=== PATIENT | female | born 1975 | race Two or more races ===

== ENCOUNTER 2023-09-11 19:45 | Emergency (ER) | payer MEDICAID, OTHER ==
[~2023-09-11] VITALS: Ht 165.1 cm; Wt 89.1 kg
[2023-09-11 20:18] VITALS: BP 168/92; PULSE 63; RESP 18; O2SAT 100
[2023-09-11] MEDS ORDERED: ACET500T58 PO (21:07)
== END 2023-09-11 21:16 | disposition home or self-care (01) ==
LOC: ER 19:45
DX: H92.03 Otalgia, bilateral (principal); R51.9 Headache, unspecified